=== PATIENT | female | born 1955 | race Caucasian/White ===

== ENCOUNTER 2016-07-18 12:11 | Emergency (ER) | payer BC, OTHER ==
[~2016-07-18] VITALS: Ht 152.4 cm; Wt 65.8 kg
[2016-07-18 18:13] VITALS: BP 161/87
[2016-07-18] MEDS ORDERED: IBUPROFEN 600 MG TAB PO ONE (19:45)
== END 2016-07-18 19:38 | disposition home or self-care (01) ==
LOC: ER 12:16
DX: S62.602A Fracture of unspecified phalanx of right middle finger, initial encounter for closed fracture (principal); Z88.6 Allergy status to analgesic agent; W19.XXXA Unspecified fall, initial encounter; Y93.89 Activity, other specified; Y99.8 Other external cause status; Y92.89 Other specified places as the place of occurrence of the external cause
CPT/HCPCS: 29130; 73130

== ENCOUNTER 2019-03-25 17:51 | Emergency (ER) | payer OTHER ==
[~2019-03-25] VITALS: Ht 152.4 cm; Wt 64.4 kg
[2019-03-25 19:46] LABS: Basophils # (auto) 0 uL; Basophils % (auto) 0.2 % (0.0-2.0); Eosinophils # (auto) 0.1 uL; Eosinophils % (auto) 2.7 % (0.0-7.0); Hematocrit 45.1 % (36.0-46.0); Hemoglobin 15.7 g/dL (12.2-16.2); Lymphocytes # (auto) 1.3 uL; Lymphocytes % (auto) 26.9 % (10.0-50.0); Mean Corpuscular Hemoglobin 33.2 pg (28.0-32.0); Mean Corpuscular Hgb Conc. 34.7 g/dL (32.0-36.0); Mean Corpuscular Volume 95.6 fL (80.0-100.0); Monocytes # (auto) 0.6 uL; Monocytes % (auto) 11.3 % (0.0-12.0); Neutrophils # (auto) 2.9 uL; Neutrophils % (auto) 58.9 % (37.0-80.0); Nucleated Red Blood Cells % 0.1 %; Platelet Count (auto) 162 10^3/uL (140-450); Red Blood Cells 4.72 10^6/uL (4.0-5.20); Red Cell Distribution Width 13.6 % (11.8-14.3); White Blood Cell 4.9 10^3/uL (4.4-10.8)
[2019-03-25 20:02] LABS: Albumin 3.9 g/dL (3.4-5.0); BUN/Creatinine Ratio 12.9; Calcium 9.1 mg/dL (8.5-10.1); Potassium 3.8 mmol/L (3.5-5.1)
[2019-03-25 20:05] LABS: Total Protein 7.2 g/dL (6.4-8.2)
[2019-03-25 20:10] LABS: INR 1.01 (0.9-1.15); Partial Thromboplastin Time 26.1 sec (23.64-32.05)
[2019-03-25 20:59] LABS: Urine Bacteria FEW /hpf (None Seen); Urine Blood Negative /uL (Negative); Urine Mucus FEW (None Seen); Urine Specific Gravity 1.005 (1.001-1.035); Urine WBC <1 /hpf (0 - 5)
[2019-03-25 21:20] LABS: Alcohol, Urine < 3.0 mg/dL (0-5); Amphetamine Screen, Urine NEGATIVE (NEGATIVE); Barbiturate Scree,Urine NEGATIVE (NEGATIVE); Benzodiazephine Screen, Urine NEGATIVE (NEGATIVE); Cannabinoid Screen, Urine POSITIVE (NEGATIVE); Cocaine Screen, Urine NEGATIVE (NEGATIVE); Opiate Scree,Urine NEGATIVE (NEGATIVE); Phencyclidine Screen, Urine NEGATIVE (NEGATIVE)
[2019-03-25] MEDS ORDERED: cefTRIAXone 1GM/50ML D5W 50 ML IV ONE (21:30)
[2019-03-25 22:01] VITALS: BP 180/101
[2019-03-25] MEDS ORDERED: diphenhdrAMINE HCL 50 MG/1 ML VL IV ONE (22:30)
== END 2019-03-25 22:52 | disposition home or self-care (01) ==
LOC: ER 17:51
DX: L03.113 Cellulitis of right upper limb (principal); L95.9 Vasculitis limited to the skin, unspecified; Z90.710 Acquired absence of both cervix and uterus; Z88.5 Allergy status to narcotic agent; Z88.8 Allergy status to other drugs, medicaments and biological substances
CPT/HCPCS: 36415; 73200; 80053; 80307; 80320; 81001; 83605; 85025; 85610; 85730; 87040; 96365; 96375; 99284; J0696; J1200

== ENCOUNTER 2023-06-24 14:27 | Emergency (ER) | payer MEDICARE, BC ==
[~2023-06-24] VITALS: Ht 152.4 cm; Wt 55.0 kg
[2023-06-24] MEDS ORDERED: BACL20TA PO (16:44)
[2023-06-24] MEDS ORDERED: IBUP-1455 PO (16:44)
[2023-06-24] MEDS: methylPREDNISolone SOD SUCC 125 MG/2 ML VL IM ONE (18:20)
[2023-06-24 18:21] VITALS: BP 167/95; PULSE 87; RESP 18; O2SAT 99
[2023-06-24] MEDS: KETOROLAC TROMETH 30 MG/ML 1ML VIAL IM ONE (18:21)
== END 2023-06-24 18:29 | disposition home or self-care (01) ==
LOC: ER 14:27
DX: S30.0XXA Contusion of lower back and pelvis, initial encounter (principal); M54.59 Other low back pain; Z85.9 Personal history of malignant neoplasm, unspecified; Z98.890 Other specified postprocedural states; Z88.8 Allergy status to other drugs, medicaments and biological substances; W18.39XA Other fall on same level, initial encounter; Y93.41 Activity, dancing; Y92.89 Other specified places as the place of occurrence of the external cause; Y99.8 Other external cause status
CPT/HCPCS: 72192; 96372; 99285; J1885; J2930